=== PATIENT | female | born 1995 | race African-American/Black ===

== ENCOUNTER 2020-05-08 01:44 | Emergency (ER) | payer MEDICAID ==
[~2020-05-08] VITALS: Ht 167.6 cm; Wt 73.0 kg
[2020-05-08] MEDS ORDERED: ONDANSETRON HCL 4MG/2ML INJ IV STA (01:57)
[2020-05-08] MEDS ORDERED: SODIUM CHLORIDE 0.9% 1,000 ML IV ONE (01:57)
[2020-05-08 02:32] LABS: CHLORIDE 109 mEq/L (98-107)
[2020-05-08 02:33] LABS: BASOPHILS % 1.3 % (0.0-2.0); EOSINOPHILS % 4.9 % (0.0-5.0); HEMATOCRIT. 34.6 % (36.0-48.0); LYMPHOCYTES % 43.1 % (20.0-50.0); MEAN CORPUSCULAR HEMOGLOBIN 30.4 pg (28.0-32.0); MEAN CORPUSCULAR VOLUME 87.8 fL (81.0-99.0); MEAN PLATELET VOLUME 9.3 fl (7.4-10.4); MONOCYTES % 7.4 % (2.0-8.0); NEUTROPHILS % 43.3 % (40.0-76.0); PLATELET 183 x1000/uL (130-400); RED BLOOD CELL COUNT 3.94 mill/uL (4.2-5.4); RED CELL DISTRIBUTION WIDTH 12.4 % (11.6-14.6)
[2020-05-08 02:36] LABS: ETHANOL BLOOD < 10 mg/dL
[2020-05-08 02:37] LABS: HCG SCREEN NEGATIVE
[2020-05-08 02:38] LABS: CLARITY URINE CLOUDY (CLEAR); COLOR URINE YELLOW (YELLOW); KETONES URINE TRACE (NEGATIVE); LEUKOCYTE ESTERASE URINE 2+ (NEGATIVE); NITRITE URINE POSITIVE (NEGATIVE); OCCULT BLOOD URINE TRACE (NEGATIVE); PH URINE 5.5 (4.5-8.0); PROTEIN URINE TRACE (NEGATIVE); SPECIFIC GRAVITY URINE 1.032 (1.005-1.030)
[2020-05-08 02:45] LABS: *BARBITURATES SCREEN URINE NEGATIVE (NEGATIVE)
[2020-05-08 02:46] LABS: *BENZODIAZEPINES SCREEN URINE NEGATIVE (NEGATIVE); *COCAINE SCREEN URINE NEGATIVE (NEGATIVE); METHADONE URINE SCREEN NEGATIVE (NEGATIVE); OPIATES URINE SCREEN NEGATIVE (NEGATIVE); PHENCYCLIDINE URINE SCREEN NEGATIVE (NEGATIVE)
[2020-05-08 03:05] LABS: *AMPHETAMINES SCREEN URINE PRESUMTIVE POSITIVE (NEGATIVE); CANNABINOID URINE SCREEN PRESUMTIVE POSITIVE (NEGATIVE)
[2020-05-08] MEDS ORDERED: CEFTRIAXONE 1 G PREMIX 50 ML IV NR (05:30)
[2020-05-08 09:30] VITALS: BP 100/69
== END 2020-05-08 11:37 | disposition home or self-care (01) ==
LOC: EDBD 01:44 → ER 01:44
DX: G93.40 Encephalopathy, unspecified (principal); F19.10 Other psychoactive substance abuse, uncomplicated
CPT/HCPCS: 36415; 70450; 80053; 80305; 80320; 81003; 81025; 84484; 84703; 85025; 96361; 96365; 96375; 99285; J0696; J2405; J7030; G0480

== ENCOUNTER 2020-09-08 08:18 | Emergency (ER) | payer MEDICAID ==
[~2020-09-08] VITALS: Ht 160 cm; Wt 70.0 kg
[2020-09-08 08:21] VITALS: BP 101/63
[2020-09-08] MEDS ORDERED: KETOROLAC 60MG/2ML VIAL IM STA (08:44)
[2020-09-08] MEDS ORDERED: LIDOCAINE HCL/PF 1% 10 MG/ML 5ML VIAL IJ ONE (09:00)
[2020-09-08] MEDS ORDERED: BACITRACIN ZINC OINT UDPKT TOP ONE (09:00)
[2020-09-08] MEDS ORDERED: LORAZEPAM 2MG/ML CPJ IM STA (10:04)
== END 2020-09-08 11:45 | disposition home or self-care (01) ==
LOC: ER 08:18
DX: L03.011 Cellulitis of right finger (principal)
CPT/HCPCS: 81025; 96372; 99284; J1885; J2060; J3490; Z7610